=== PATIENT | female | born 2000 | race Hispanic/Latino ===

== ENCOUNTER 2021-11-13 13:06 | Emergency (ER) | payer SELFPAY ==
[~2021-11-13] VITALS: Ht 162.6 cm; Wt 54.4 kg
[2021-11-13 14:14] LABS: CLARITY,URINE SL CLOUDY (CLEAR); COLOR,URINE YELLOW (YELLOW); KETONES,URINE 2+ (NEGATIVE); LEUKOCYTE ESTERASE ,URINE SMALL (NEGATIVE); NITRITE,URINE NEGATIVE (NEGATIVE); PROTEIN,URINE DIPSTICK TRACE (NEGATIVE); URINE UROBILINOGEN 1 mg/dL (0.2 - 1)
[2021-11-13 14:16] LABS: BACTERIA,URINE RARE /HPF; EPITHELIAL CELLS,URINE FEW /LPF; RBC,URINE 0-5 /HPF (0-5)
[2021-11-13 14:30] LABS: BASOPHILS % 0.3 % (0.0-1.0); EOSINOPHILS % 0.2 % (0.0-6.0); HEMATOCRIT 30.8 % (34.2-44.1); HEMOGLOBIN 8.2 g/dL (12.0-16.0); LYMPHOCYTES # (AUTO) 1.1 (1.0-3.2); LYMPHOCYTES % 17.8 % (18.0-39.1); MEAN CORPUSCULAR HEMOGLOBIN 18.2 pg (28-32); MEAN CORPUSCULAR HGB CONC 26.6 g/dL (31-35); MEAN CORPUSCULAR VOLUME 68.3 fL (81-99); MONOCYTES % 15.1 % (4.4-11.3); NEUTROPHILS # (AUTO) 4.2 (2.1-6.9); NEUTROPHILS % 66.3 % (38.7-80.0); PLATELET COUNT 236 x10e3/uL (140-360); RED BLOOD COUNT 4.51 x10e6/uL (3.6-5.1); RED CELL DISTRIBUTION WIDTH 19.1 % (11.7-14.4)
[2021-11-13] MEDS ORDERED: AZITHROMYCIN 250 MG TAB PO ONE (14:30)
[2021-11-13 14:51] LABS: ALBUMIN/GLOBULIN RATIO 1.1 (0.8-2.0); ANION GAP 12.4 mmol/L (8-16); CALCIUM 8.5 mg/dL (8.4-10.2); CREATININE, SERUM 0.69 mg/dL (0.57-1.11); POTASSIUM 3.4 mmol/L (3.5-5.1)
[2021-11-13 15:07] LABS: FREE THYROXINE INDEX 1.8994 (1.4-3.8); THYROID STIMULATING HORMONE 0.413 uIU/mL (0.350-4.940)
[2021-11-13] MEDS ORDERED: CEPHALEXIN500 MG PO (15:12)
[2021-11-13] MEDS ORDERED: VALACYCLOVIR500 MG PO (15:12)
== END 2021-11-13 15:38 | disposition home or self-care (01) ==
LOC: ER 13:20
DX: O98.519 Other viral diseases complicating pregnancy, unspecified trimester (principal); O23.40 Unspecified infection of urinary tract in pregnancy, unspecified trimester; N39.0 Urinary tract infection, site not specified; Z86.2 Personal history of diseases of the blood and blood-forming organs and certain disorders involving the immune mechanism
CPT/HCPCS: 36415; 80053; 81001; 81025; 84436; 84443; 84479; 85025; 86592; 99284; J0696